=== PATIENT | female | born 1970 | race Caucasian/White ===

== ENCOUNTER → 2017-11-20 | Outpatient (CLI) | payer BC ==
[~2017-11-20] MED LIST: LEVO100T83; [UNRECOGNIZED DRUG - CODE] PO
== END | disposition home or self-care (01) ==
LOC: LAB 08:48
PROVIDERS: ATTEND Internal Medicine
DX: E03.9 Hypothyroidism, unspecified (principal); I12.9 Hypertensive chronic kidney disease with stage 1 through stage 4 chronic kidney disease, or unspecified chronic kidney disease; N18.3 Chronic kidney disease, stage 3 (moderate)
CPT/HCPCS: 36415; 84439; 84443

== ENCOUNTER → 2018-07-14 | Outpatient (CLI) | payer BC ==
[2018-07-14 11:16] LABS: Basophils # (auto) 0.1 uL; Eosinophils # (auto) 0.2 uL; White Blood Cell 7.7 10^3/uL (4.4-10.8)
[2018-07-14 11:17] LABS: Urine Bacteria FEW /hpf (None Seen); Urine Blood Negative /uL (Negative); Urine Mucus FEW (None Seen); Urine Specific Gravity 1.024 (1.001-1.035); Urine WBC 7 /hpf (0 - 5)
[2018-07-14 11:18] LABS: Basophils % (auto) 0.9 % (0.0-2.0); Hematocrit 42.6 % (36.0-46.0); Lymphocytes # (auto) 2.4 uL; Mean Corpuscular Hemoglobin 25.7 pg (28.0-32.0); Mean Corpuscular Volume 78.1 fL (80.0-100.0); Monocytes # (auto) 0.5 uL; Monocytes % (auto) 7.1 % (0.0-12.0); Neutrophils # (auto) 4.5 uL; Platelet Count (auto) 388 10^3/uL (140-450); Red Blood Cells 5.46 10^6/uL (4.0-5.20); Red Cell Distribution Width 14.7 % (11.8-14.3)
[2018-07-14 12:36] LABS: Albumin 4.1 g/dL (3.4-5.0); Anion Gap 6 (5-15); Carbon Dioxide 27 mmol/L (21-32); Chloride 105 mmol/L (98-107); Potassium 4.1 mmol/L (3.5-5.1); Sodium 138 mmol/L (136-145)
[2018-07-14 12:43] LABS: Alanine Aminotransferase 35 U/L (13-56); Alkaline Phosphatase 161 U/L (45-117); Aspartate Aminotransferase 21 U/L (15-37); BUN/Creatinine Ratio 21.7; Bilirubin, Total 0.3 mg/dL (0.2-1.0); Blood Urea Nitrogen 18 mg/dL (7-18); Calcium 9.2 mg/dL (8.5-10.1); Cholesterol 222 mg/dL (< 200); GFR African American > 60 mL/min; GFR Non-African American > 60 mL/min; Glucose 94 mg/dL (74-106); HDL Cholesterol 51 mg/dL (40-59); LDL Cholesterol 152 mg/dL (< 100); Total Protein 8.9 g/dL (6.4-8.2); Triglycerides 172 mg/dL (< 150)
== END | disposition home or self-care (01) ==
LOC: LAB 10:36
PROVIDERS: ATTEND Internal Medicine
DX: I10 Essential (primary) hypertension (principal); E03.9 Hypothyroidism, unspecified
CPT/HCPCS: 36415; 80053; 80061; 81001; 82043; 84439; 84443; 85025; 85379; 85652

== ENCOUNTER → 2018-07-29 | Outpatient (CLI) | payer BC ==
[~2018-07-29] VITALS: Ht 30.5 cm; Wt 90.7 kg
[~2018-07-29] MED LIST changes: +IOHEXOL 350 MG/ML 100ML IJ ONE; +diphenhdrAMINE HCL 50 MG/1 ML VL IV ONE; +diphenhdrAMINE HCL 50 MG/1 ML VL ONE; +methylPREDNISolone SOD SUCC 125 MG/2 ML VL IV ONE; +methylPREDNISolone SOD SUCC 125 MG/2 ML VL ONE
--- NOTE | 2018-07-29 09:00 | NUR ---
FOR CT CHEST FOLLOWUP FOR CANCER DIAGNOSIS.
--- NOTE | 2018-07-29 09:00 | NUR ---
IV insertion IV access obtained, via clean sterile technique by inserting 22 gauge catheter at after attempt(s). IV secured properly. No trauma to site. Patient tolerated procedure well. PREMEDICATED ORDERED.
--- NOTE | 2018-07-29 09:16 | NUR ---
FROM CT SCAN AND NOTED TO HAVE SMALL AMOUNT EDEMA AT LEFT AC, APPROXIMATELY HALF DOLLAR SIZE. ICE APPLIED. PT REPORTS TENDERNESS. NO REDNESS, NO CHANGE IN COLOR.
--- NOTE | 2018-07-29 09:35 | NUR ---
REPORTS TENDERNESS RESOLVED. SWELLING AT SITE REDUCED TO QUARTER SIZE. IV SITE DCD.
[2018-07-29 09:40] VITALS: BP 135/89
--- NOTE | 2018-07-29 09:40 | NUR ---
Discharge Instructions See e-MAR for any mediations given with this visit. Patient education given on disease process. Patient verbalized understanding. Previous labs reviewed. Patient discharged in stable condition with after care instructions . MEDICATION ADMINISTRATION SOLUMEDROL 125 MG IVP AT 0900 BENADRYL 25 MG IVP AT 0905
[2018-07-29 09:54] VITALS: BP 140/88
== END | disposition home or self-care (01) ==
LOC: Rad HDHVI 08:12
PROVIDERS: ATTEND Internal Medicine Cardiovascular Disease
DX: K44.9 Diaphragmatic hernia without obstruction or gangrene (principal); I12.9 Hypertensive chronic kidney disease with stage 1 through stage 4 chronic kidney disease, or unspecified chronic kidney disease; N18.3 Chronic kidney disease, stage 3 (moderate); E03.9 Hypothyroidism, unspecified; I26.99 Other pulmonary embolism without acute cor pulmonale; I47.1 Supraventricular tachycardia
CPT/HCPCS: 71260; 93306; 96374; 96375; G0463; J1200; J2930; Q9967

== ENCOUNTER → 2019-11-01 | Emergency (ER) | payer BC ==
[~2019-11-01] VITALS: Ht 177.8 cm; Wt 86.2 kg
[~2019-11-01] MED LIST changes: -IOHEXOL 350 MG/ML 100ML IJ ONE; -diphenhdrAMINE HCL 50 MG/1 ML VL IV ONE; -diphenhdrAMINE HCL 50 MG/1 ML VL ONE; -methylPREDNISolone SOD SUCC 125 MG/2 ML VL IV ONE; -methylPREDNISolone SOD SUCC 125 MG/2 ML VL ONE
[2019-11-01 21:14] VITALS: BP 153/84
== END | disposition home or self-care (01) ==
LOC: ER 21:05
DX: L30.9 Dermatitis, unspecified (principal); Q82.8 Other specified congenital malformations of skin; Z79.899 Other long term (current) drug therapy

== ENCOUNTER → 2019-11-11 | Outpatient (CLI) | payer BC ==
[2019-11-11 11:06] LABS: Basophils # (auto) 0.1 10 ^3/uL (0-0.2); Mean Corpuscular Volume 78.8 fL (80.0-100.0); Monocytes % (auto) 6.7 % (0.0-12.0); Neutrophils # (auto) 7.3 10 ^3/uL (1.6-8.6)
[2019-11-11 11:07] LABS: Basophils % (auto) 0.8 % (0.0-2.0); Eosinophils # (auto) 0.3 10 ^3/uL (0-0.8); Eosinophils % (auto) 2.8 % (0.0-7.0); Hematocrit 43.8 % (36.0-46.0); Hemoglobin 14.2 g/dL (12.2-16.2); Lymphocytes # (auto) 2.7 10 ^3/uL (0.4-5.4); Lymphocytes % (auto) 24.3 % (10.0-50.0); Mean Corpuscular Hemoglobin 25.6 pg (28.0-32.0); Mean Corpuscular Hgb Conc. 32.5 g/dL (32.0-36.0); Monocytes # (auto) 0.7 10 ^3/uL (0-1.3); Neutrophils % (auto) 65.4 % (37.0-80.0); Nucleated Red Blood Cells % 0.1 %; Platelet Count (auto) 396 10^3/uL (140-450); Red Blood Cells 5.56 10^6/uL (4.0-5.20); Red Cell Distribution Width 16.1 % (11.8-14.3); White Blood Cell 11.2 10^3/uL (4.4-10.8)
[2019-11-11 11:42] LABS: Urine Bacteria NONE SEEN /hpf (None Seen); Urine Blood Negative /uL (Negative); Urine Mucus FEW (None Seen); Urine Specific Gravity 1.024 (1.001-1.035); Urine WBC 3 /hpf (0 - 5)
[2019-11-11 11:54] LABS: Albumin 3.8 g/dL (3.4-5.0); Potassium 3.7 mmol/L (3.5-5.1)
[2019-11-11 12:01] LABS: BUN/Creatinine Ratio 17.9; Bilirubin, Total 0.5 mg/dL (0.2-1.0); Calcium 8.8 mg/dL (8.5-10.1); Total Protein 8.8 g/dL (6.4-8.2)
[2019-11-11 12:02] LABS: Free T4 (Free Thyroxine) 1.05 ng/dL (0.89-1.76)
[2019-11-11 12:03] LABS: Folate (Folic Acid) 13.77 ng/mL (5.38-24)
== END | disposition home or self-care (01) ==
LOC: LAB 10:31
PROVIDERS: ATTEND Internal Medicine
DX: I10 Essential (primary) hypertension (principal); E03.9 Hypothyroidism, unspecified; Z85.850 Personal history of malignant neoplasm of thyroid
CPT/HCPCS: 36415; 80053; 80061; 81001; 82607; 82746; 84439; 84443; 85025; 85652; 86800

== ENCOUNTER → 2020-09-05 | Outpatient (CLI) | payer BC ==
[~2020-09-05] MED LIST changes: +LEVO100T3; -LEVO100T83
== END | disposition home or self-care (01) ==
LOC: Rad HDHVI 15:36
PROVIDERS: ATTEND Internal Medicine Cardiovascular Disease
DX: I63.9 Cerebral infarction, unspecified (principal); I10 Essential (primary) hypertension
CPT/HCPCS: 93880

== ENCOUNTER → 2020-11-28 | Outpatient (CLI) | payer BC ==
[~2020-11-28] MED LIST changes: +ASPI-543 PO; +ATOR40TA52 PO; +CYAN500T15 PO; +FAMO-12 PO; +GABA100C9 PO; +LEV150T PO; -LEVO100T3; +METO25TA93 PO; -[UNRECOGNIZED DRUG - CODE] PO
[2020-11-28 17:26] LABS: Basophils # (auto) 0.1 10 ^3/uL (0-0.2); Eosinophils # (auto) 0.5 10 ^3/uL (0-0.8); Eosinophils % (auto) 6.4 % (0.0-7.0); Hematocrit 36.5 % (36.0-46.0); Hemoglobin 12.2 g/dL (12.2-16.2); Lymphocytes # (auto) 2.3 10 ^3/uL (0.4-5.4); Lymphocytes % (auto) 27.9 % (10.0-50.0); Mean Corpuscular Hemoglobin 25.9 pg (28.0-32.0); Mean Corpuscular Hgb Conc. 33.3 g/dL (32.0-36.0); Mean Corpuscular Volume 77.9 fL (80.0-100.0); Monocytes # (auto) 0.6 10 ^3/uL (0-1.3); Monocytes % (auto) 7.4 % (0.0-12.0); Neutrophils # (auto) 4.8 10 ^3/uL (1.6-8.6); Neutrophils % (auto) 57.3 % (37.0-80.0); Platelet Count (auto) 319 10^3/uL (140-450); Red Blood Cells 4.69 10^6/uL (4.0-5.20); Red Cell Distribution Width 15.1 % (11.8-14.3); White Blood Cell 8.4 10^3/uL (4.4-10.8)
[2020-11-28 17:42] LABS: INR 0.92 (0.9-1.15)
[2020-11-28 17:43] LABS: BUN/Creatinine Ratio 13.3; Calcium 8.6 mg/dL (8.5-10.1); Potassium 3.7 mmol/L (3.5-5.1)
== END | disposition home or self-care (01) ==
LOC: LAB 16:51
PROVIDERS: ATTEND Internal Medicine Cardiovascular Disease
DX: Z01.812 Encounter for preprocedural laboratory examination (principal)
CPT/HCPCS: 36415; 80048; 85025; 85610; 85730

== ENCOUNTER 2020-11-30 07:26 | Day surgery (SDC) | payer BC ==
[~2020-11-30] VITALS: Ht 177.8 cm; Wt 88.5 kg
[2020-11-30] MEDS ORDERED: fentaNYL CITRATE 100 MCG/2 ML VL ONE (08:18)
[2020-11-30] MEDS ORDERED: MIDAZOLAM HCL 1MG/1ML-2 ML VIAL ONE (08:18)
== END 2020-11-30 10:13 | disposition home or self-care (01) ==
LOC: CATH 07:26
PROVIDERS: ATTEND Internal Medicine Cardiovascular Disease
DX: R06.02 Shortness of breath (principal); I49.5 Sick sinus syndrome; I10 Essential (primary) hypertension; E78.5 Hyperlipidemia, unspecified; Z79.899 Other long term (current) drug therapy; Z88.8 Allergy status to other drugs, medicaments and biological substances; Z91.041 Radiographic dye allergy status; Z20.822 Contact with and (suspected) exposure to COVID-19; Z96.89 Presence of other specified functional implants
CPT/HCPCS: 93312; J2250; J3010; J7040; U0003; 99152

== ENCOUNTER 2021-02-27 09:29 | Inpatient (IN) | payer BC ==
[2021-02-22 10:18] LABS: Basophils # (auto) 0.1 10 ^3/uL (0-0.2); Hemoglobin 13.6 g/dL (12.2-16.2)
[2021-02-22 10:21] LABS: Basophils % (auto) 1.3 % (0.0-2.0); Eosinophils # (auto) 0.4 10 ^3/uL (0-0.8); Eosinophils % (auto) 4.4 % (0.0-7.0); Hematocrit 40.7 % (36.0-46.0); Lymphocytes # (auto) 1.9 10 ^3/uL (0.4-5.4); Lymphocytes % (auto) 24.1 % (10.0-50.0); Mean Corpuscular Hemoglobin 25.7 pg (28.0-32.0); Mean Corpuscular Hgb Conc. 33.4 g/dL (32.0-36.0); Mean Corpuscular Volume 76.8 fL (80.0-100.0); Monocytes # (auto) 0.6 10 ^3/uL (0-1.3); Monocytes % (auto) 7.7 % (0.0-12.0); Neutrophils % (auto) 62.5 % (37.0-80.0); Red Cell Distribution Width 15.3 % (11.8-14.3)
[2021-02-22 10:38] LABS: Urine Bacteria NONE SEEN /hpf (None Seen); Urine Blood Negative /uL (Negative); Urine Mucus FEW (None Seen); Urine Specific Gravity 1.021 (1.001-1.035); Urine WBC 1 /hpf (0 - 5)
[2021-02-22 10:42] LABS: Potassium 3.5 mmol/L (3.5-5.1)
[2021-02-22 10:49] LABS: Albumin 3.7 g/dL (3.4-5.0); BUN/Creatinine Ratio 12.8; Bilirubin, Total 0.8 mg/dL (0.2-1.0); Total Protein 8.5 g/dL (6.4-8.2)
[~2021-02-27] VITALS: Ht 177.8 cm; Wt 100.3 kg
[2021-02-27] MEDS ORDERED: ceFAZolin 1GM/50ML 100 ML IV ONE (10:05)
[2021-02-27] MEDS ORDERED: EPINEPHrine HCL 1 MG/1 ML AMP ONE (10:32)
[2021-02-27] MEDS ORDERED: BUPIVACAINE HCL 50 ML ONE (10:32)
[2021-02-27] MEDS ORDERED: fentaNYL CITRATE 100 MCG/2 ML VL ONE (10:56)
[2021-02-27] MEDS ORDERED: MEPERIDINE HCL (50 MG/ML) 1 ML VIAL ONE (10:56)
[2021-02-27] MEDS ORDERED: MIDAZOLAM HCL 2MG/2ML 2ml VIAL (1mg/ml) ONE (10:56)
[2021-02-27] MEDS ORDERED: KETOROLAC TROMETH 30 MG/ML 1ML VIAL IV ONE (11:30)
[2021-02-27] MEDS ORDERED: ONDANSETRON HCL 4 MG/2 ML VIAL ONE (11:30)
[2021-02-27] MEDS ORDERED: ePHEDrine SULFATE 50 MG/ML AMP IV PRN (11:30)
[2021-02-27] MEDS ORDERED: hydrALAZINE HCL 20 MG/ML VL IV PRN (11:30)
[2021-02-27] MEDS ORDERED: MORPHINE SULFATE 4 MG/ML SYR/VIAL IV PRN (11:30)
[2021-02-27] MEDS ORDERED: HYDROmorphone HCL 2 MG/ML VL IV PRN ×2 (11:30→16:15)
[2021-02-27] MEDS ORDERED: LABETALOL HCL 5 MG/ML 4ML SYRINGE IV PRN (11:30)
[2021-02-27] MEDS ORDERED: ONDANSETRON HCL 4 MG/2 ML VIAL IV PRN ×2 (11:30→17:15)
[2021-02-27] MEDS ORDERED: PROPOFOL 10 MG/ML 20 ML IV ONE (11:30)
[2021-02-27] MEDS ORDERED: DexAMETHasone SOD PHOS 10MG/1ML VIAL INJ ONE (11:30)
[2021-02-27] MEDS ORDERED: MIDAZOLAM HCL 2MG/2ML 2ml VIAL (1mg/ml) IV PRN (11:30)
[2021-02-27] MEDS: KETOROLAC TROMETH 30 MG/ML 1ML VIAL IV PRN (14:20)
[2021-02-27] MEDS ORDERED: HYDROmorphone HCL 2 MG/ML VL ONE (15:21)
[2021-02-27] MEDS ORDERED: HYDROmorphone HCL 2 MG/ML VL IV ONE (15:30)
[2021-02-27] MEDS: HYDROmorphone HCL 2 MG/ML VL IV PRN ×2 (15:37→15:54)
[2021-02-27] MEDS ORDERED: NITROGLYCERIN 0.4 MG SL TAB SL PRN (17:15)
[2021-02-27] MEDS ORDERED: MORPHINE SULFATE INJECTION 2 MG/ML SYRG IV PRN (17:15)
[2021-02-27] MEDS: MORPHINE SULFATE INJECTION 2 MG/ML SYRG IV PRN ×2 (18:26→22:59)
[2021-02-27 22:00] VITALS: BP 146/77
[2021-02-27] MEDS: ATORVASTATIN 20 MG TAB PO SCH (22:57)
[2021-02-28 05:00] VITALS: BP 104/50
[2021-02-28] MEDS: LEVOTHYROXINE SODIUM 25 MCG TAB PO SCH (06:17)
[2021-02-28] MEDS: LEVOTHYROXINE SODIUM 100 MCG TAB PO SCH (06:18)
[2021-02-28] MEDS: FAMOTIDINE 20 MG TAB PO SCH (06:19)
[2021-02-28] MEDS: METOPROLOL TARTRATE 25 MG TAB PO SCH (06:20)
[2021-02-28] MEDS: MORPHINE SULFATE INJECTION 2 MG/ML SYRG IV PRN ×3 (06:31→18:22)
[2021-02-28 09:00] VITALS: BP 114/71
[2021-02-28] MEDS: ASPirin-EC 81 mg tab PO SCH (09:34)
[2021-02-28] MEDS: GABAPENTIN 100 MG CAP PO SCH (09:34)
[2021-02-28 13:00] VITALS: BP 120/66
[2021-02-28] MEDS: KETOROLAC TROMETH 30 MG/ML 1ML VIAL IV PRN ×2 (14:50→21:27)
[2021-02-28 17:00] VITALS: BP 106/89
[2021-02-28] MEDS: ATORVASTATIN 20 MG TAB PO SCH (21:27)
[2021-02-28 22:00] VITALS: BP 123/72
[2021-03-01] MEDS: MORPHINE SULFATE INJECTION 2 MG/ML SYRG IV PRN ×4 (04:25→21:41)
[2021-03-01 05:00] VITALS: BP 114/69
[2021-03-01] MEDS: LEVOTHYROXINE SODIUM 25 MCG TAB PO SCH (07:13)
[2021-03-01] MEDS: METOPROLOL TARTRATE 25 MG TAB PO SCH (07:14)
[2021-03-01] MEDS: FAMOTIDINE 20 MG TAB PO SCH (07:14)
[2021-03-01] MEDS: LEVOTHYROXINE SODIUM 100 MCG TAB PO SCH (07:14)
[2021-03-01 08:30] VITALS: BP 112/72
[2021-03-01] MEDS: ASPirin-EC 81 mg tab PO SCH (09:18)
[2021-03-01] MEDS: GABAPENTIN 100 MG CAP PO SCH (09:18)
[2021-03-01] MEDS: KETOROLAC TROMETH 30 MG/ML 1ML VIAL IV PRN (12:32)
[2021-03-01 13:00] VITALS: BP 114/70
[2021-03-01 16:59] VITALS: BP 121/70
[2021-03-01] MEDS ORDERED: diphenhdrAMINE HCL 50 MG/1 ML VL IV ONE (19:15)
[2021-03-01] MEDS: ATORVASTATIN 20 MG TAB PO SCH (21:40)
[2021-03-01 22:00] VITALS: BP 115/62
[2021-03-02] MEDS: diphenhdrAMINE HCL 50 MG/1 ML VL IV PRN ×2 (02:22→11:12)
[2021-03-02] MEDS: MORPHINE SULFATE INJECTION 2 MG/ML SYRG IV PRN ×3 (02:22→11:58)
[2021-03-02 05:30] VITALS: BP 117/68
[2021-03-02] MEDS: LEVOTHYROXINE SODIUM 100 MCG TAB PO SCH (06:56)
[2021-03-02] MEDS: LEVOTHYROXINE SODIUM 25 MCG TAB PO SCH (06:56)
[2021-03-02] MEDS: FAMOTIDINE 20 MG TAB PO SCH (06:56)
[2021-03-02] MEDS: METOPROLOL TARTRATE 25 MG TAB PO SCH (06:56)
[2021-03-02] MEDS: GABAPENTIN 100 MG CAP PO SCH (08:33)
[2021-03-02] MEDS: ASPirin-EC 81 mg tab PO SCH (08:33)
[2021-03-02 09:03] VITALS: BP 112/63
[2021-03-02 11:05] VITALS: BP 117/68
== END 2021-03-02 14:15 | disposition home or self-care (01) | DRG 489 ==
LOC: SUR 09:29 → TELE-CENTR 21:45
PROVIDERS: ADMIT Orthopaedic Surgery Sports Medicine; ATTEND Internal Medicine
PROC: 0SQC4ZZ Repair Right Knee Joint, Percutaneous Endoscopic Approach (ICD-10-PCS; principal; 2021-02-27 11:01)
DX: M94.261 Chondromalacia, right knee (principal); Z20.822 Contact with and (suspected) exposure to COVID-19; E66.9 Obesity, unspecified; Z68.31 Body mass index [BMI] 31.0-31.9, adult; E78.00 Pure hypercholesterolemia, unspecified; E78.5 Hyperlipidemia, unspecified; E89.0 Postprocedural hypothyroidism; G62.9 Polyneuropathy, unspecified; G89.29 Other chronic pain; I10 Essential (primary) hypertension; R07.89 Other chest pain; K21.9 Gastro-esophageal reflux disease without esophagitis; Z79.899 Other long term (current) drug therapy; Z95.0 Presence of cardiac pacemaker
CPT/HCPCS: 36415; 80053; 81001; 84484; 85025; 93005; G0378; J0171; J0690; J1100; J1885; J2250; J2405; J2704; J3490

== ENCOUNTER → 2021-08-02 | Outpatient (CLI) | payer BC ==
[2021-08-02 09:45] LABS: Basophils # (auto) 0.1 10 ^3/uL (0-0.2); Monocytes # (auto) 0.5 10 ^3/uL (0-1.3); Neutrophils # (auto) 3.5 10 ^3/uL (1.6-8.6); White Blood Cell 6.1 10^3/uL (4.4-10.8)
[2021-08-02 09:49] LABS: Basophils % (auto) 1.2 % (0.0-2.0); Eosinophils # (auto) 0.2 10 ^3/uL (0-0.8); Eosinophils % (auto) 3.3 % (0.0-7.0); Hematocrit 36.9 % (36.0-46.0); Hemoglobin 12.4 g/dL (12.2-16.2); Lymphocytes # (auto) 1.8 10 ^3/uL (0.4-5.4); Lymphocytes % (auto) 30.2 % (10.0-50.0); Mean Corpuscular Hemoglobin 25.9 pg (28.0-32.0); Mean Corpuscular Hgb Conc. 33.8 g/dL (32.0-36.0); Mean Corpuscular Volume 76.8 fL (80.0-100.0); Monocytes % (auto) 8.5 % (0.0-12.0); Neutrophils % (auto) 56.8 % (37.0-80.0); Nucleated Red Blood Cells % 0.2 %
[2021-08-02 09:56] LABS: Urine Bacteria NONE SEEN /hpf (None Seen); Urine Blood Negative /uL (Negative); Urine Mucus FEW (None Seen); Urine Specific Gravity 1.028 (1.001-1.035); Urine WBC 12 /hpf (0 - 5)
[2021-08-02 10:41] LABS: Chloride 109 mmol/L (98-107); Potassium 4.2 mmol/L (3.5-5.1); Sodium 138 mmol/L (136-145)
[2021-08-02 10:47] LABS: Calcium 8.7 mg/dL (8.5-10.1)
[2021-08-02 10:58] LABS: Ferritin 43.2 ng/mL (10-322)
[2021-08-02 10:59] LABS: Alanine Aminotransferase 50 U/L (13-56); Alkaline Phosphatase 166 U/L (45-117); Aspartate Aminotransferase 36 U/L (15-37); Bilirubin, Total 0.7 mg/dL (0.2-1.0); Cholesterol 137 mg/dL (< 200); GFR African American 94 mL/min; GFR Non-African American 78 mL/min; HDL Cholesterol 46 mg/dL (40-59); LDL Cholesterol 74 mg/dL (< 100); Triglycerides 95 mg/dL (< 150)
[2021-08-02 11:33] LABS: Free T4 (Free Thyroxine) 1.67 ng/dL (0.89-1.76)
[2021-08-02 12:06] LABS: % Iron Saturation 19.9 % (15-50)
[2021-08-02 13:41] LABS: Albumin 3.8 g/dL (3.4-5.0); Anion Gap 5 (5-15); BUN/Creatinine Ratio 18.3; Blood Urea Nitrogen 15 mg/dL (7-18); Carbon Dioxide 24 mmol/L (21-32); Glucose 95 mg/dL (74-106)
== END | disposition home or self-care (01) ==
LOC: LAB 09:09
PROVIDERS: ATTEND Internal Medicine
DX: Z12.11 Encounter for screening for malignant neoplasm of colon (principal); I10 Essential (primary) hypertension; E03.9 Hypothyroidism, unspecified
CPT/HCPCS: 36415; 80053; 80061; 81001; 82728; 83036; 83540; 83550; 84439; 84443; 85025; 85652; 86800

== ENCOUNTER 2021-10-14 07:10 | Inpatient (IN) | payer BC ==
[~2021-10-14] VITALS: Ht 154.9 cm; Wt 95.0 kg
[2021-10-14] MEDS ORDERED: LACTATED RINGER'S 1,000 ML IV ONE (10:00)
[2021-10-14 10:04] LABS: Basophils # (auto) 0.1 10 ^3/uL (0-0.2); Eosinophils # (auto) 0.3 10 ^3/uL (0-0.8); Hemoglobin 12.8 g/dL (12.2-16.2); Neutrophils # (auto) 4.5 10 ^3/uL (1.6-8.6)
[2021-10-14 10:05] LABS: Eosinophils % (auto) 4.4 % (0.0-7.0); Lymphocytes # (auto) 1.7 10 ^3/uL (0.4-5.4); Lymphocytes % (auto) 23.6 % (10.0-50.0); Mean Corpuscular Hemoglobin 25.6 pg (28.0-32.0); Mean Corpuscular Hgb Conc. 32.8 g/dL (32.0-36.0); Mean Corpuscular Volume 78.1 fL (80.0-100.0); Monocytes # (auto) 0.5 10 ^3/uL (0-1.3); Monocytes % (auto) 7.4 % (0.0-12.0); Neutrophils % (auto) 63.6 % (37.0-80.0); Red Cell Distribution Width 14.6 % (11.8-14.3)
[2021-10-14 10:22] LABS: Albumin 3.7 g/dL (3.4-5.0); Potassium 3.9 mmol/L (3.5-5.1)
[2021-10-14 10:27] LABS: BUN/Creatinine Ratio 15.6; Bilirubin, Total 0.5 mg/dL (0.2-1.0); Total Protein 8.3 g/dL (6.4-8.2)
[2021-10-14 10:36] LABS: Urine Bacteria NONE SEEN /hpf (None Seen); Urine Blood Negative /uL (Negative); Urine Specific Gravity 1.009 (1.001-1.035); Urine WBC 5 /hpf (0 - 5)
[2021-10-14] MEDS ORDERED: SODIUM CHLORIDE 0.9% 1,000 ML IV ONE (11:15)
[2021-10-14] MEDS ORDERED: cefTRIAXone 1GM/50ML D5W 50 ML IV ONE (11:30)
[2021-10-14] MEDS ORDERED: MORPHINE SULFATE INJECTION 2 MG/ML SYRG IV PRN (12:30)
[2021-10-14] MEDS ORDERED: LACTULOSE 20Gm/30ML SOLN PO PRN (12:30)
[2021-10-14] MEDS ORDERED: ASPirin 81 mg TAB PO SCH (12:30)
[2021-10-14] MEDS ORDERED: NITROGLYCERIN 0.4 MG SL TAB SL PRN (12:30)
[2021-10-14] MEDS: SODIUM CHLORIDE 0.9% 1,000 ML IV SCH ×2 (12:32→21:55)
[2021-10-14 17:00] VITALS: BP 129/77
[2021-10-14 22:00] VITALS: BP 112/76
[2021-10-14] MEDS ORDERED: ATORVASTATIN 20 MG TAB PO SCH (22:00)
[2021-10-15 05:00] VITALS: BP 114/78
[2021-10-15 06:52] LABS: Cholesterol 124 mg/dL (< 200)
[2021-10-15 06:54] LABS: HDL Cholesterol 44 mg/dL (40-59); LDL Cholesterol 69 mg/dL (< 100); Triglycerides 114 mg/dL (< 150)
[2021-10-15] MEDS ORDERED: cefTRIAXone 1GM/50ML D5W 50 ML IV SCH (09:00)
[2021-10-15 09:04] VITALS: BP 117/63
[2021-10-15] MEDS: SODIUM CHLORIDE 0.9% 1,000 ML IV SCH (09:43)
[2021-10-15] MEDS ORDERED: ENOXAPARIN SOD 40 MG/0.4 ML SYRINGE SC SCH (10:00)
[2021-10-15] MEDS ORDERED: ASPirin 81 mg TAB PO SCH (10:00)
[2021-10-15] MEDS ORDERED: NITROGLYCERIN 0.2MG/HR TOPICAL PATCH TD SCH (10:00)
[2021-10-15] MEDS ORDERED: IBUPROFEN 400 MG TAB PO ONE (12:50)
[2021-10-15 13:00] VITALS: BP 114/56
[2021-10-15 17:22] VITALS: BP 126/76
[2021-10-15 17:26] VITALS: BP 117/63
[2021-10-15 18:35] LABS: Free T4 (Free Thyroxine) 1.48 ng/dL (0.89-1.76); T3 Total 1.01 ng/mL (0.60-1.81)
== END 2021-10-15 18:10 | disposition home or self-care (01) | DRG 690 ==
LOC: ER 07:10 → TELE 12:16 → TELE-WESTW 15:04
PROVIDERS: ADMIT Internal Medicine; ATTEND Internal Medicine
DX: N39.0 Urinary tract infection, site not specified (principal); E05.80 Other thyrotoxicosis without thyrotoxic crisis or storm; E66.9 Obesity, unspecified; E89.0 Postprocedural hypothyroidism; I10 Essential (primary) hypertension; L57.0 Actinic keratosis; Z20.822 Contact with and (suspected) exposure to COVID-19; L73.9 Follicular disorder, unspecified; M19.90 Unspecified osteoarthritis, unspecified site; Z68.39 Body mass index [BMI] 39.0-39.9, adult; Z83.3 Family history of diabetes mellitus; Z80.8 Family history of malignant neoplasm of other organs or systems; Z86.73 Personal history of transient ischemic attack (TIA), and cerebral infarction without residual deficits; Z95.0 Presence of cardiac pacemaker; Z90.49 Acquired absence of other specified parts of digestive tract
CPT/HCPCS: 36415; 71046; 80053; 80061; 81001; 83735; 84439; 84443; 84480; 84484; 85025; 85379; 85652; 87086; 93005; 96365; G0378; J0696

== ENCOUNTER → 2021-12-05 | Outpatient (CLI) | payer BC ==
[~2021-12-05] VITALS: Ht 177.8 cm; Wt 90.7 kg
[~2021-12-05] MED LIST changes: +ADENOSINE 76 MG in GIVE UN-DILUTED 0 ML IV ONE; +ADENOSINE 90 MG/30 ML INJ IV ONE; -GABA100C9 PO
== END | disposition home or self-care (01) ==
LOC: Rad HDHVI 09:10
PROVIDERS: ATTEND Internal Medicine Cardiovascular Disease
DX: R07.9 Chest pain, unspecified (principal); I25.10 Atherosclerotic heart disease of native coronary artery without angina pectoris; I49.5 Sick sinus syndrome; I10 Essential (primary) hypertension; E78.5 Hyperlipidemia, unspecified; Z95.810 Presence of automatic (implantable) cardiac defibrillator
CPT/HCPCS: 78452; 93005; 96374; 96375; A9500; J0153

== ENCOUNTER → 2022-01-31 | Outpatient (CLI) | payer BC ==
[~2022-01-31] MED LIST changes: -ADENOSINE 76 MG in GIVE UN-DILUTED 0 ML IV ONE; -ADENOSINE 90 MG/30 ML INJ IV ONE
[2022-01-31 13:48] LABS: Urine Bacteria FEW /hpf (None Seen); Urine Blood Negative /uL (Negative); Urine Specific Gravity 1.018 (1.001-1.035); Urine WBC 9 /hpf (0 - 5)
[2022-01-31 13:57] LABS: Potassium 3.9 mmol/L (3.5-5.1)
[2022-01-31 13:58] LABS: Albumin 3.9 g/dL (3.4-5.0); Calcium 9.3 mg/dL (8.5-10.1)
[2022-01-31 14:03] LABS: BUN/Creatinine Ratio 11.5; Bilirubin, Direct 0.2 mg/dL (0-0.2); Bilirubin, Total 0.7 mg/dL (0.2-1.0); Total Protein 8.5 g/dL (6.4-8.2)
== END | disposition home or self-care (01) ==
LOC: LAB 12:56
PROVIDERS: ATTEND Internal Medicine
DX: E03.9 Hypothyroidism, unspecified (principal); I10 Essential (primary) hypertension; Z79.899 Other long term (current) drug therapy
CPT/HCPCS: 36415; 80053; 80061; 80076; 81001; 81025; 84702; 86706; 86735; 86762; 86765; 86787

== ENCOUNTER → 2022-02-22 | Outpatient (CLI) | payer BC ==
[2022-02-22 14:15] LABS: Urine Bacteria NONE SEEN /hpf (None Seen); Urine Blood 1+ /uL (Negative); Urine Mucus FEW (None Seen); Urine Specific Gravity 1.017 (1.001-1.035); Urine WBC 3 /hpf (0 - 5)
== END | disposition home or self-care (01) ==
LOC: LAB 13:08
PROVIDERS: ATTEND Internal Medicine
DX: N39.0 Urinary tract infection, site not specified (principal)
CPT/HCPCS: 81001; 81025

== ENCOUNTER → 2022-03-04 | Outpatient (CLI) | payer BC | END | disposition home or self-care (01) | LOC: LAB 12:06 | PROVIDERS: ATTEND Internal Medicine | DX: Z01.84 Encounter for antibody response examination (principal); Q82.8 Other specified congenital malformations of skin | CPT/HCPCS: 36415; 86706 ==

== ENCOUNTER → 2022-11-06 | Outpatient (CLI) | payer BC ==
[2022-11-06 13:34] LABS: Albumin 3.5 g/dL (3.4-5.0); Bilirubin, Direct 0.1 mg/dL (0-0.2); Bilirubin, Total 0.4 mg/dL (0.2-1.0); Total Protein 7.6 g/dL (6.4-8.2)
== END | disposition home or self-care (01) ==
LOC: LAB 11:29
PROVIDERS: ATTEND Internal Medicine
DX: Z01.84 Encounter for antibody response examination (principal); Q82.8 Other specified congenital malformations of skin; Z79.899 Other long term (current) drug therapy
CPT/HCPCS: 36415; 80061; 80076; 84702; 86706

== ENCOUNTER 2022-11-20 10:03 | Emergency (ER) | payer BC ==
[~2022-11-20] VITALS: Ht 177.8 cm; Wt 97.8 kg
[~2022-11-20 10:03] MED LIST changes: -CYAN500T15 PO; +CYAN500T39 PO
[2022-11-20] MEDS ORDERED: SODIUM CHLORIDE 0.9% 1,000 ML IV ONE (10:45)
[2022-11-20 12:12] LABS: Calcium 8.6 mg/dL (8.5-10.1); Potassium 4.2 mmol/L (3.5-5.1)
[2022-11-20 12:16] LABS: BUN/Creatinine Ratio 14.9 (10.0-20.0); Bilirubin, Total 0.6 mg/dL (0.2-1.0); Total Protein 7.9 g/dL (6.4-8.2)
[2022-11-20] MEDS ORDERED: MECL1TAB42 PO (12:17)
[2022-11-20] MEDS ORDERED: KETOROLAC TROMETH 30 MG/ML 1ML VIAL IV ONE (12:30)
[2022-11-20] MEDS ORDERED: MECLIZINE HCL 25 MG TAB PO ONE (12:30)
[2022-11-20 13:07] LABS: Basophils # (auto) 0.1 10 ^3/uL (0-0.2); Eosinophils # (auto) 0.2 10 ^3/uL (0-0.8); Hemoglobin 12.3 g/dL (12.2-16.2); Lymphocytes # (auto) 2.1 10 ^3/uL (0.4-5.4); Mean Corpuscular Hemoglobin 25.9 pg (28.0-32.0); Monocytes # (auto) 0.6 10 ^3/uL (0-1.3); Neutrophils # (auto) 3.5 10 ^3/uL (1.6-8.6); Red Blood Cells 4.76 10^6/uL (4.0-5.20); White Blood Cell 6.5 10^3/uL (4.4-10.8)
[2022-11-20 13:09] LABS: Eosinophils % (auto) 3.6 % (0.0-7.0); Hematocrit 37.8 % (36.0-46.0); Lymphocytes % (auto) 32.5 % (10.0-50.0); Mean Corpuscular Hgb Conc. 32.6 g/dL (32.0-36.0); Mean Corpuscular Volume 79.4 fL (80.0-100.0); Monocytes % (auto) 9.4 % (0.0-12.0); Neutrophils % (auto) 53.5 % (37.0-80.0); Nucleated Red Blood Cells % 0.3 %; Red Cell Distribution Width 15.3 % (11.8-14.3)
[2022-11-20 15:13] VITALS: BP 117/82
== END 2022-11-20 15:29 | disposition home or self-care (01) ==
LOC: ER 10:03 → EEVIPCON 10:03 → ER 15:29
DX: S09.90XA Unspecified injury of head, initial encounter (principal); I10 Essential (primary) hypertension; Z86.73 Personal history of transient ischemic attack (TIA), and cerebral infarction without residual deficits; Z90.49 Acquired absence of other specified parts of digestive tract; Z90.89 Acquired absence of other organs; W06.XXXA Fall from bed, initial encounter; Y93.89 Activity, other specified; Y92.89 Other specified places as the place of occurrence of the external cause; Y99.8 Other external cause status
CPT/HCPCS: 36415; 70450; 71045; 78582; 80053; 84443; 84484; 85025; 85379; 93005; 96361; 96374; 99285; A9540; A9558; J1885; J7030; J8597

== ENCOUNTER → 2022-12-05 | Outpatient (CLI) | payer BC ==
[~2022-12-05] MED LIST changes: +MECL1TAB42 PO
== END | disposition home or self-care (01) ==
LOC: LAB 14:03
PROVIDERS: ATTEND Dermatology
DX: Q82.8 Other specified congenital malformations of skin (principal); Z79.899 Other long term (current) drug therapy
CPT/HCPCS: 81025

== ENCOUNTER → 2023-02-26 | Outpatient (CLI) | payer BC, MEDICAID ==
[2023-02-26 12:49] LABS: Albumin 4.5 g/dL (3.2-4.8); Bilirubin, Direct 0.2 mg/dL (<0.3); Bilirubin, Total 0.6 mg/dL (0.2-1.0); Total Protein 7.8 g/dL (5.7-8.2)
== END | disposition home or self-care (01) ==
LOC: LAB 11:14
PROVIDERS: ATTEND Dermatology
DX: Q82.8 Other specified congenital malformations of skin (principal); Z79.899 Other long term (current) drug therapy
CPT/HCPCS: 36415; 80061; 80076; 81025

== ENCOUNTER → 2023-03-28 | Outpatient (CLI) | payer BC, MEDICAID | END | disposition home or self-care (01) | LOC: LAB 14:09 | PROVIDERS: ATTEND Dermatology | DX: Q82.8 Other specified congenital malformations of skin (principal); Z79.899 Other long term (current) drug therapy | CPT/HCPCS: 81025 ==

== ENCOUNTER 2023-04-19 01:26 | Emergency (ER) | payer BC, MEDICAID ==
[~2023-04-19] VITALS: Ht 177.8 cm; Wt 90.0 kg
[2023-04-19 01:42] LABS: Basophils # (auto) 0.1 10 ^3/uL (0-0.2); Basophils % (auto) 0.8 % (0.0-2.0); Eosinophils # (auto) 0.3 10 ^3/uL (0-0.8); Eosinophils % (auto) 3.1 % (0.0-7.0); Hematocrit 40.2 % (36.0-46.0); Hemoglobin 13.3 g/dL (12.2-16.2); Lymphocytes # (auto) 3.5 10 ^3/uL (0.4-5.4); Lymphocytes % (auto) 32.5 % (10.0-50.0); Mean Corpuscular Hemoglobin 25.7 pg (28.0-32.0); Mean Corpuscular Volume 77.7 fL (80.0-100.0); Monocytes % (auto) 9.3 % (0.0-12.0); Neutrophils # (auto) 5.8 10 ^3/uL (1.6-8.6); Neutrophils % (auto) 54.3 % (37.0-80.0); Red Blood Cells 5.18 10^6/uL (4.0-5.20); Red Cell Distribution Width 15.8 % (11.8-14.3); White Blood Cell 10.8 10^3/uL (4.4-10.8)
[2023-04-19] MEDS ORDERED: NITROGLYCERIN 0.4 MG SL TAB SL ONE (01:45)
[2023-04-19] MEDS ORDERED: ONDANSETRON ODT 4 MG TAB PO ONE (01:45)
[2023-04-19 01:57] LABS: INR 0.95 (0.9-1.15); Partial Thromboplastin Time 26.9 SEC (24.5-34.5)
[2023-04-19 02:00] LABS: Alanine Aminotransferase 28 U/L (7-40); Albumin 4.6 g/dL (3.2-4.8); Alkaline Phosphatase 203 U/L (46-116); Anion Gap 9 (5-15); Aspartate Aminotransferase 23 U/L (13-40); BUN/Creatinine Ratio 7.9 (10.0-20.0); Bilirubin, Total 0.5 mg/dL (0.2-1.0); Blood Urea Nitrogen 7 mg/dL (9-23); Carbon Dioxide 24 mmol/L (20-30); Chloride 104 mmol/L (98-107); Glucose 96 mg/dL (74-106); Magnesium 2.1 mg/dL (1.6-2.6); Sodium 137 mmol/L (136-145)
[2023-04-19 02:05] LABS: Potassium 2.9 mmol/L (3.5-5.1)
[2023-04-19 02:20] VITALS: BP 115/78; PULSE 84; RESP 16; O2SAT 98
[2023-04-19 03:03] VITALS: PULSE 105
[2023-04-19 03:06] LABS: Urine Bacteria MANY /hpf (None Seen); Urine Blood 1+ /uL (Negative); Urine Clarity HAZY (Clear); Urine Color Yellow (Yellow); Urine Mucus FEW (None Seen); Urine Protein, UAD Negative (Negative); Urine Urobilinogen Normal (Negative); Urine WBC 5 /hpf (0 - 5)
[2023-04-19] MEDS ORDERED: POTASSIUM EFFERVESENT TAB 25 MEQ PO ONE (04:00)
[2023-04-19] MEDS ORDERED: NITR-87 PO (05:12)
[2023-04-19] MEDS ORDERED: cefTRIAXone SOD 1,000 MG VL IM ONE (05:15)
== END 2023-04-19 05:32 | disposition home or self-care (01) ==
LOC: EEVIPCON 01:26 → ER 01:26
DX: R07.89 Other chest pain (principal); N39.0 Urinary tract infection, site not specified; E87.6 Hypokalemia; I20.9 Angina pectoris, unspecified; E78.5 Hyperlipidemia, unspecified; I10 Essential (primary) hypertension; Z88.8 Allergy status to other drugs, medicaments and biological substances; Z79.899 Other long term (current) drug therapy; Z79.82 Long term (current) use of aspirin; Z86.73 Personal history of transient ischemic attack (TIA), and cerebral infarction without residual deficits; Z90.49 Acquired absence of other specified parts of digestive tract; Z90.89 Acquired absence of other organs; Z98.890 Other specified postprocedural states
CPT/HCPCS: 36415; 71045; 80053; 81001; 83735; 83880; 84484; 85025; 85610; 85730; 93005; 96372; 99285; J0696; Q0162

== ENCOUNTER → 2023-04-29 | Outpatient (CLI) | payer BC, MEDICAID ==
[~2023-04-29] MED LIST changes: +NITR-87 PO
== END | disposition home or self-care (01) ==
LOC: LAB 16:19
PROVIDERS: ATTEND Dermatology
DX: Q82.8 Other specified congenital malformations of skin (principal); Z79.899 Other long term (current) drug therapy
CPT/HCPCS: 81025

== ENCOUNTER → 2023-09-03 | Outpatient (CLI) | payer BC, MEDICAID ==
[2023-09-03 11:59] LABS: Eosinophils # (auto) 0.2 10 ^3/uL (0-0.8); Monocytes # (auto) 0.5 10 ^3/uL (0-1.3); Nucleated Red Blood Cells % 0.1 %; White Blood Cell 6.8 10^3/uL (4.4-10.8)
[2023-09-03 12:01] LABS: Basophils # (auto) 0 10 ^3/uL (0-0.2); Basophils % (auto) 0.6 % (0.0-2.0); Eosinophils % (auto) 3.4 % (0.0-7.0); Hematocrit 39.7 % (36.0-46.0); Mean Corpuscular Hemoglobin 25.8 pg (28.0-32.0); Mean Corpuscular Hgb Conc. 32.8 g/dL (32.0-36.0); Mean Corpuscular Volume 78.8 fL (80.0-100.0); Red Blood Cells 5.04 10^6/uL (4.0-5.20); Red Cell Distribution Width 14.5 % (11.8-14.3)
[2023-09-03 12:13] LABS: Urine Blood TRACE /uL (Negative); Urine Clarity HAZY (Clear); Urine Color Yellow (Yellow); Urine Protein, UAD TRACE (Negative); Urine Specific Gravity 1.024 (1.001-1.035); Urine Urobilinogen Normal (Negative); Urine pH 5.5 (5.0-8.0)
[2023-09-03 12:31] LABS: Alanine Aminotransferase 20 U/L (7-40); Albumin 4.6 g/dL (3.2-4.8); Alkaline Phosphatase 150 U/L (46-116); Anion Gap 6 (5-15); Aspartate Aminotransferase 23 U/L (13-40); BUN/Creatinine Ratio 11.6 (10.0-20.0); Bilirubin, Direct 0.3 mg/dL (<0.3); Blood Urea Nitrogen 10 mg/dL (9-23); Calcium 9.5 mg/dL (8.5-10.1); Carbon Dioxide 28 mmol/L (20-30); Chloride 106 mmol/L (98-107); Cholesterol 125 mg/dL (< 200); Glucose 93 mg/dL (74-106); HDL Cholesterol 40 mg/dL (40-59); LDL Cholesterol 64 mg/dL (< 100); Potassium 4.5 mmol/L (3.5-5.1); Sodium 140 mmol/L (136-145); Triglycerides 133 mg/dL (< 150)
[2023-09-03 12:32] LABS: Bilirubin, Total 0.8 mg/dL (0.2-1.0); Total Protein 7.5 g/dL (5.7-8.2)
== END | disposition home or self-care (01) ==
LOC: LAB 11:42
PROVIDERS: ATTEND Internal Medicine Cardiovascular Disease
DX: I10 Essential (primary) hypertension (principal); R00.2 Palpitations; D51.3 Other dietary vitamin B12 deficiency anemia; D64.9 Anemia, unspecified; E11.9 Type 2 diabetes mellitus without complications; E55.9 Vitamin D deficiency, unspecified
CPT/HCPCS: 36415; 80048; 80061; 80076; 81003; 82306; 83036; 84443; 85025

== ENCOUNTER → 2024-01-28 | Outpatient (CLI) | payer BC ==
[~2024-01-28] MED LIST changes: +HYDROmorphone HCL 2 MG/ML VL/or syr ONE; +LIDOCAINE 2%HCL (LOCAL ANESTH.) INJ 20ML MDV ONE; +MIDAZOLAM HCL 2MG/2ML 2ml VIAL (1mg/ml) ONE; +fentaNYL CITRATE 100 MCG/2 ML VL ONE
[2024-01-28 13:00] VITALS: BP 123/81; PULSE 79; RESP 18; O2SAT 97
[2024-01-28 13:16] VITALS: BP 120/79; PULSE 79; RESP 18; O2SAT 97
== END | disposition home or self-care (01) ==
LOC: Rad HDHVI 12:55
PROVIDERS: ATTEND Internal Medicine Cardiovascular Disease
DX: Z01.818 Encounter for other preprocedural examination (principal); R94.31 Abnormal electrocardiogram [ECG] [EKG]
CPT/HCPCS: 71046; 93005; G0463

== ENCOUNTER 2024-01-29 07:17 | Day surgery (SDC) | payer BC, MEDICAID ==
[2024-01-28 15:13] LABS: Basophils # (auto) 0.1 10 ^3/uL (0-0.2); Basophils % (auto) 1.1 % (0.0-2.0); Hemoglobin 13.2 g/dL (12.2-16.2); Monocytes # (auto) 0.6 10 ^3/uL (0-1.3)
[2024-01-28 15:15] LABS: Eosinophils # (auto) 0.3 10 ^3/uL (0-0.8); Eosinophils % (auto) 3.3 % (0.0-7.0); Lymphocytes # (auto) 2.6 10 ^3/uL (0.4-5.4); Lymphocytes % (auto) 33.3 % (10.0-50.0); Mean Corpuscular Hemoglobin 25.9 pg (28.0-32.0); Mean Corpuscular Hgb Conc. 32.9 g/dL (32.0-36.0); Mean Corpuscular Volume 78.7 fL (80.0-100.0); Monocytes % (auto) 7.5 % (0.0-12.0); Neutrophils # (auto) 4.3 10 ^3/uL (1.6-8.6); Neutrophils % (auto) 54.8 % (37.0-80.0); Nucleated Red Blood Cells % 0.2 %; Red Blood Cells 5.09 10^6/uL (4.0-5.20); Red Cell Distribution Width 15.6 % (11.8-14.3); White Blood Cell 7.9 10^3/uL (4.4-10.8)
[2024-01-28 15:28] LABS: INR 0.97 (0.9-1.15); Partial Thromboplastin Time 27.6 SEC (24.5-34.5); Prothrombin Time 10.3 sec (9.3-11.8)
[2024-01-28 15:46] LABS: Chloride 109 mmol/L (98-107); Potassium 4.2 mmol/L (3.5-5.1); Sodium 142 mmol/L (136-145)
[2024-01-28 15:47] LABS: Anion Gap 6 (5-15); Carbon Dioxide 27 mmol/L (20-30)
[2024-01-28 15:52] LABS: BUN/Creatinine Ratio 11.6 (10.0-20.0); Blood Urea Nitrogen 10 mg/dL (9-23); Glucose 91 mg/dL (74-106)
[~2024-01-29] VITALS: Ht 177.8 cm; Wt 84.4 kg
[~2024-01-29 07:17] MED LIST changes: -HYDROmorphone HCL 2 MG/ML VL/or syr ONE; -LIDOCAINE 2%HCL (LOCAL ANESTH.) INJ 20ML MDV ONE; -MECL1TAB42 PO; -MIDAZOLAM HCL 2MG/2ML 2ml VIAL (1mg/ml) ONE; -NITR-87 PO; -fentaNYL CITRATE 100 MCG/2 ML VL ONE
[2024-01-29] MEDS ORDERED: VANCOMYCIN HCL 1000 MG VL ONE (10:26)
[2024-01-29] MEDS ORDERED: VANCOMYCIN 1GM/200ML 200 ML IV ONE (10:26)
[2024-01-29 11:15] VITALS: BP 119/89; PULSE 78; RESP 22; O2SAT 94
[2024-01-29 11:37] VITALS: BP 115/78; PULSE 66; RESP 16; O2SAT 94
[2024-01-29 11:52] VITALS: PULSE 63; RESP 12
[2024-01-29 12:07] VITALS: PULSE 62; RESP 12
[2024-01-29 12:22] VITALS: PULSE 63; RESP 13
[2024-01-29 12:37] VITALS: PULSE 67; RESP 14
== END 2024-01-29 13:19 | disposition home or self-care (01) ==
LOC: CATH 07:17
PROVIDERS: ATTEND Internal Medicine Cardiovascular Disease
DX: Z45.018 Encounter for adjustment and management of other part of cardiac pacemaker (principal); I49.5 Sick sinus syndrome; I10 Essential (primary) hypertension; Z88.8 Allergy status to other drugs, medicaments and biological substances; Z91.041 Radiographic dye allergy status; Z79.82 Long term (current) use of aspirin; Z98.890 Other specified postprocedural states; Z79.899 Other long term (current) drug therapy
CPT/HCPCS: 33228; 36415; 80048; 85025; 85610; 85730; C1785; J1170; J2250; J3010; J3370; J7030; 99152; 99153

== ENCOUNTER → 2024-07-07 | Outpatient (CLI) | payer BC, MEDICAID | END | disposition home or self-care (01) | LOC: LAB 15:33 | PROVIDERS: ATTEND Urology | DX: N18.9 Chronic kidney disease, unspecified (principal); R35.0 Frequency of micturition; R39.15 Urgency of urination | CPT/HCPCS: 87086 ==

== ENCOUNTER → 2024-07-29 | Outpatient (CLI) | payer BC, MEDICAID | END | disposition home or self-care (01) | LOC: LAB 12:43 | PROVIDERS: ATTEND Urology | DX: R39.15 Urgency of urination (principal); R39.9 Unspecified symptoms and signs involving the genitourinary system | CPT/HCPCS: 87086 ==

== ENCOUNTER 2025-03-10 09:29 | Outpatient (CLI) | payer BC, MEDICAID | END 2025-03-10 17:00 | disposition home or self-care (01) | LOC: Rad HDHVI 09:29 | PROVIDERS: ATTEND Internal Medicine Cardiovascular Disease | DX: I34.0 Nonrheumatic mitral (valve) insufficiency (principal); I49.5 Sick sinus syndrome; I10 Essential (primary) hypertension | CPT/HCPCS: 93306 ==